=== PATIENT | female | born 1995 | race Caucasian/White ===

== ENCOUNTER 2016-12-25 23:35 | Emergency (ER) | payer SELFPAY ==
[~2016-12-25] VITALS: Ht 162.6 cm; Wt 52.3 kg
[2016-12-25] MEDS ORDERED: MIRT30 PO (23:46)
[2016-12-26 00:07] LABS: GLUCOSE,POINT OF CARE 90 MG/DL (70-110)
[2016-12-26 03:15] VITALS: BP 128/76
== END 2016-12-26 03:21 | disposition home or self-care (01) ==
LOC: EMS 23:37
DX: F15.10 Other stimulant abuse, uncomplicated (principal); F11.10 Opioid abuse, uncomplicated; F31.9 Bipolar disorder, unspecified; F17.210 Nicotine dependence, cigarettes, uncomplicated
CPT/HCPCS: 36415; 80307; 82962; 99284; G0480